=== PATIENT | female | born 2005 | race Caucasian/White ===

== ENCOUNTER 2024-07-07 14:48 | Emergency (ER) | payer BC ==
[~2024-07-07] VITALS: Ht 170.2 cm; Wt 68.0 kg
[2024-07-07] MEDS ORDERED: VYVANSE30 MG (15:33)
[2024-07-07] MEDS ORDERED: birth control (15:33)
[2024-07-07 16:18] VITALS: PULSE 77; RESP 16; TEMP 98.9; O2SAT 98
== END 2024-07-07 16:26 | disposition home or self-care (01) ==
LOC: FSED 14:55
DX: R30.0 Dysuria (principal); R10.30 Lower abdominal pain, unspecified; N83.202 Unspecified ovarian cyst, left side; F90.9 Attention-deficit hyperactivity disorder, unspecified type
CPT/HCPCS: 74176; 81003; 81025; 99283